=== PATIENT | female | born 1980 | race Caucasian/White ===

== ENCOUNTER 2018-12-23 17:10 | Emergency (ER) | payer MEDICAID ==
[2018-12-23] MEDS ORDERED: NORMAL SALINE 1000 ML 1,000 ML IV ONE (17:23)
--- NOTE | 2018-12-23 17:23 | ER Document Report ---
ED Medical Screen (RME) - General Chief Complaint: Flank Pain Stated Complaint: FLANK PAIN Time Seen by Provider: 12/23/18 17:18 Mode of Arrival: Ambulatory Information source: Patient Notes: Patient presents stating that she may be a month . Patient complains of nausea and right flank pain for the past 3 days. Patient reports dark urine. Patient does have a history of kidney stones. Patient denies any vaginal bleeding or discharge. hx: Polycystic kidney, Norma-Nunez, Lyme disease, fibromyalgia, lupus, RA, diabetes, kidney stones I have greeted and performed a rapid initial assessment of this patient. A comprehensive ED assessment and evaluation of the patient, analysis of test results and completion of the medical decision making process will be conducted by additional ED providers. TRAVEL OUTSIDE OF THE [place] IN LAST 30 DAYS: No - Related Data Allergies/Adverse Reactions: No Known Allergies Allergy (Verified 12/23/18 17:11) Physical Exam - Vital signs Vitals: Temp Pulse Resp BP Pulse Ox 98.4 F 116 H 18 148/84 H 100 12/23/18 17:14 12/23/18 17:14 12/23/18 17:14 12/23/18 17:14 12/23/18 17:14 - Back Back: CVA tenderness - Right Course - Vital Signs Vital signs: Temp Pulse Resp BP Pulse Ox 98.4 F 116 H 18 148/84 H 100 12/23/18 17:14 12/23/18 17:14 12/23/18 17:14 12/23/18 17:14 12/23/18 17:14
[2018-12-23 18:33] LABS: ABSOLUTE EOSINOPHILS # (AUTO) 0.2 10^3/uL (0.0-0.6); ABSOLUTE LYMPHOCYTES (AUTO) 1.1 10^3/uL (0.5-4.7); ABSOLUTE MONOCYTES (AUTO) 0.5 10^3/uL (0.1-1.4); BASOPHILS % (AUTO) 0.7 % (0-2); EOSINOPHILS % (AUTO) 2.5 % (0-6); HEMATOCRIT 38.2 % (36.0-47.0); HEMOGLOBIN 13.5 g/dL (12.0-15.5); LYMPHOCYTES % (AUTO) 16.4 % (13-45); MEAN CORPUSCULAR HEMOGLOBIN 32.2 pg (27.0-33.4); MEAN CORPUSCULAR HGB CONC 35.4 g/dL (32.0-36.0); MEAN CORPUSCULAR VOLUME 91 fl (80-97); MONOCYTES % (AUTO) 7.1 % (3-13); PLATELET COUNT 226 10^3/uL (150-450); RED CELL DISTRIBUTION WIDTH 12.2 % (11.5-14.0); SEGMENTED NEUTROPHILS % (AUTO) 73.3 % (42-78); TOTAL CELLS COUNTED % (AUTO) 100 %; WHITE BLOOD COUNT 6.9 10^3/uL (4.0-10.5)
[2018-12-23 18:38] LABS: APPEARANCE,URINE SLIGHTLY-CLOUDY; BILIRUBIN,URINE NEGATIVE (NEGATIVE); COLOR,URINE YELLOW; GLUCOSE, URINE >=500 mg/dL (NEGATIVE); KETONES,URINE TRACE mg/dL (NEGATIVE); LEUKOCYTE ESTERASE,URINE TRACE (NEGATIVE); NITRITE,URINE NEGATIVE (NEGATIVE); PROTEIN,URINE NEGATIVE (NEGATIVE); URINE SPECIFIC GRAVITY 1.025; UROBILINOGEN,URINE NEGATIVE mg/dL (<2.0)
[2018-12-23 18:49] LABS: ALKALINE PHOSPHATASE 113 U/L (38-126); ANION GAP 11 (5-19); ASPARTATE AMINO TRANSFERASE 22 U/L (14-36); BILIRUBIN,DIRECT 0.2 mg/dL (0.0-0.4); BILIRUBIN,TOTAL 0.7 mg/dL (0.2-1.3); BLOOD UREA NITROGEN 13 mg/dL (7-20); CALCIUM 9.2 mg/dL (8.4-10.2); CARBON DIOXIDE 24 mmol/L (22-30); CHLORIDE 96 mmol/L (98-107); GLUCOSE 311 mg/dL (75-110); POTASSIUM 4.1 mmol/L (3.6-5.0); TOTAL PROTEIN 6.7 g/dL (6.3-8.2)
--- NOTE | 2018-12-23 20:09 | ER Document Report ---
ED General - General Chief Complaint: Flank Pain Stated Complaint: FLANK PAIN Time Seen by Provider: 12/23/18 17:18 Mode of Arrival: Ambulatory TRAVEL OUTSIDE OF THE [place] IN LAST 30 DAYS: No - HPI Notes: Patient is a 38-year-old female G4, P1 with 2 previous abortions approximately 4 to 6 weeks and with a history of Polycystic kidney, Norma-Nunez, Lyme disease, fibromyalgia, lupus, RA, diabetes, kidney stones with multiple lithotripsies who presents planing of right flank pain that does not radiate. Patient's describes it more as a burning pain that began a few days ago. She has had some increased urinary frequency. Patient has noticed darker colored urine without hematuria. She has not had any vaginal bleeding, odor, or discharge. She is able to eat and drink, but does have a decreased p.o. intake with intermittent nausea. Denies any headache, fever, neck pain, URI, sore throat, chest pain, palpitations, syncope, cough, shortness of breath, wheeze, dyspnea, vomiting/diarrhea, loss of control of bowel or bladder, numbness/tingling, saddle anesthesia, muscle paralysis/weakness, or rash. - Related Data Allergies/Adverse Reactions: No Known Allergies Allergy (Verified 12/23/18 17:11) Past Medical History - General Information source: Patient - Social History Smoking Status: Unknown if Ever Smoked Family History: Reviewed & Not Pertinent Patient has suicidal ideation: No Patient has homicidal ideation: No Review of Systems - Review of Systems -: Yes All other systems reviewed and negative Physical Exam - Vital signs Vitals: Temp Pulse Resp BP Pulse Ox 98.4 F 116 H 18 148/84 H 100 12/23/18 17:14 12/23/18 17:14 12/23/18 17:14 12/23/18 17:14 12/23/18 17:14 - Notes Notes: PHYSICAL EXAMINATION: GENERAL: Well-appearing, well-nourished and in no acute distress. Vitals: HR 90 during exam. HEAD: Atraumatic, normocephalic. EYES: Pupils equal round and reactive to light, extraocular movements intact, sclera anicteric, conjunctiva are normal. ENT: Nares patent and without discharge. oropharynx clear without exudates. No tonsilar hypertrophy or erythema. Moist mucous membranes. NECK: Normal range of motion, supple without lymphadenopathy LUNGS: Breath sounds clear to auscultation bilaterally and equal. No wheezes rales or rhonchi. HEART: Regular rate and rhythm without murmurs, rubs, gallops. ABDOMEN: Soft, nontender, nondistended abdomen. No guarding, no rebound. No masses appreciated. Normal bowel sounds present. Very mild Rt CVA tenderness. Musculoskeletal: FROM to passive/active. Strength 5+/5. Extremities: No cyanosis, clubbing, or edema b/l. Peripheral pulses 2+. Capillary refill less than 3 seconds. NEUROLOGICAL: Normal speech, normal gait. PSYCH: Normal mood, normal affect. SKIN: Warm, Dry, normal turgor, no rashes or lesions noted. Course - Re-evaluation Re-evalutation: 12/23/18 20:12 Patient is an afebrile, well-hydrated, 38-year-old female who presents to the ED with suspected UTI and intrauterine . Vitals are acceptable without any significant tachycardia, tachypnea, or hypoxia. PE is otherwise unremarkable. CBC unremarkable for acute pathology. CMP shows elevated glucose which patient states is good for her as she is usually around 400-500. HCG at 5000+. TVUS shows evidence of the gest sac w/o pole measuring approx 5wk 5 days. See UA/UC pending. Patient is nontoxic-appearing is tolerating p.o. without any difficulties. Renal US unremarkable. No other labs or imaging warranted at this time based on H&P. Low suspicion/risk for urosepsis, acute appendicitis, bowel obstruction, acute cholecystitis, acute cholangitis, perforated diverticulitis, incarcerated hernia, pancreatitis, perforated ulcer, peritonitis, sepsis, pelvic inflammatory disease, ectopic , tubo- ovarian abscess, ovarian torsion, or other systemic emergent condition at this time. Patient is aware that her condition can change from initial presentation and she needs to monitor symptoms closely and seek medical attention if any acute changes. Rx for keflex. Continued monitoring of HCG and possible US with PCM/OBGYN. Conservative measures otherwise for symptoms. Recheck with your PCM/OBGYN in 3-5 days. Return to the ED with any worsening/concerning symptoms otherwise as reviewed in discharge. Patient is in agreement. - Vital Signs Vital signs: Temp Pulse Resp BP Pulse Ox 98.4 F 116 H 18 148/84 H 100 12/23/18 17:14 12/23/18 17:14 12/23/18 17:14 12/23/18 17:14 12/23/18 17:14 - Laboratory Result Diagrams: 12/23/18 18:09 12/23/18 18:09 Laboratory results interpreted by me: 12/23/18 12/23/18 18:09 18:09 Sodium 131.4 L Chloride 96 L Glucose 311 H Lipase 339.4 H Beta HCG, Quant 5212.70 H Urine Glucose (UA) >=500 H Urine Ketones TRACE H Ur Leukocyte Esterase TRACE H Discharge - Discharge Clinical Impression: Acute UTI (urinary tract infection), Intrauterine Condition: Stable Disposition: HOME, SELF-CARE Instructions: Urinary Tract Infection ([facility]), Cephalexin ([facility]) Additional Instructions: Push fluids (i.e. water) Proper hygenic technique Keep the skin clean Tylenol as needed Take medications as directed F/u with your PCM/OBGYN in 3-5 days for a recheck Monitor your glucose closely as it is elevated over 300 today Return to the ED with any worsening symptoms and/or development of fever, headache, chest pain, palpitations, syncope, shortness of breath, trouble breathing, abdominal pain, n/v/d, blood in stool/urine, loss of control of bowel/bladder, urinary retention, or other worsening symptoms that are concerning to you. Prescriptions: Cephalexin Monohydrate [Keflex 500 mg Capsule] 500 mg PO TID #21 capsule Forms: Elevated Blood Pressure Referrals: [facility] [Provider Group] - Follow up as needed
--- NOTE | 2018-12-23 20:11 | RADIOLOGY REPORT (SQ) ---
US RETROPERITONEUM EXAM DATE: 12/23/2018 5:22 PM CDT HISTORY: Right flank pain. COMPARISON: None. TECHNIQUE: Grayscale and color Doppler ultrasound images of the kidneys were obtained. FINDINGS: The right kidney measures 12.4 cm in length, which is normal size. The cortex has normal thickness and echogenicity. There is no right-sided kidney stone, mass or hydronephrosis. The left kidney measures 11.7 cm in length, which is normal size. The cortex has normal thickness and echogenicity. There is no left-sided kidney stone, mass or hydronephrosis. Bilateral ureteral jets are seen. IMPRESSION: Unremarkable renal ultrasound.
--- NOTE | 2018-12-23 20:11 | RADIOLOGY REPORT (SQ) ---
EXAM DESCRIPTION: US TRANSVAGINAL COMPLETED DATE/TME: 12/23/2018 17:22 CLINICAL HISTORY: 38 years, Female, r flank pain COMPARISON: None. TECHNIQUE: 2-D axial grayscale images of the pelvis were performed. Doppler was utilized. LIMITATIONS: None. FINDINGS: Uterus measures 11.1 x 6.6 x 9.0 cm in size. Cervix is closed, measuring 3.1 cm in length. Nabothian cysts are evident. Right ovary measures 2.8 x 2.0 x 1.7 cm in size. It demonstrates normal echogenicity as well as normal low resistance arterial waveforms/venous flow. Left ovary measures 2.8 x 2.0 x 2.5 cm in size. It contains a small hypoechoic lesion measuring 1.2 x 0.7 x 1.1 cm in size, likely a functional cyst. Otherwise, the left ovary demonstrates normal low resistance arterial waveforms as well as venous flow. A single intrauterine gestational sac is identified with measurements as follows: Mean sac diameter is 0.86 cm Yolk sac is identified. No pole is identified however. Estimated gestational age is 5 weeks and 5 days. IMPRESSION: Single intrauterine gestational sac as above described. No pole currently identified. Continued beta-hCG surveillance as well as follow-up pelvic ultrasound are recommended to document the development of a viable intrauterine . copyright 2010 [employer]- All Rights Reserved
[2018-12-23 20:43] VITALS: BP 137/81
== END 2018-12-23 20:43 | disposition home or self-care (01) ==
LOC: ER 17:10
DX: O23.41 Unspecified infection of urinary tract in pregnancy, first trimester (principal); O26.891 Other specified pregnancy related conditions, first trimester; R10.9 Unspecified abdominal pain; R35.0 Frequency of micturition; R63.0 Anorexia; R11.0 Nausea; Z3A.01 Less than 8 weeks gestation of pregnancy
CPT/HCPCS: 99284; 96360; 86900; 86901; 36415; 87086; 84702; 83690; 85025; 87088; 80053; 81001; 87186; 76817; 76770; J7030

== ENCOUNTER → 2019-01-12 | Outpatient (CLI) | payer SELFPAY ==
--- NOTE | 2019-01-12 14:34 | RADIOLOGY REPORT (SQ) ---
EXAM DESCRIPTION: U/S [id number] TRNABD 1GES W/ODOP COMPLETED DATE/TIME: 01/12/2019 2:27 pm REASON FOR STUDY: ENCTR FOR SUPERVISION OF OTHER NORMAL , 1ST TRIMESTER (Z34.81) Z34.81 EN COUNTER FOR SUPRVSN OF NORMAL , FIRST TRIM COMPARISON: 12/23/2018 TECHNIQUE: Transabdominal static and realtime grayscale images acquired of the pelvis. Additional se lected spectral and color Doppler images recorded. All images stored on PACs. bHCG: Not available. CLINICAL DATES: 9 weeks 3 days. LIMITATIONS: None. FINDINGS: FETUS: Single Living intrauterine . ULTRASOUND EGA: 9 weeks 1 day. ULTRASOUND JOCELYNE: 08/16/2019 EFW: Not applicable less than 20 weeks. CRL: 2.4 cm. FHR: 169 beats per minute. SURVEY: Too early to assess. AMNIOTIC FLUID: Adequate amount. PLACENTA: Not yet developed due to early gestation. SUBCHORIONIC BLEED: No. SIZE OF BLEED: Not applicable. UTERUS: No masses. No anomalies. CERVICAL LENGTH: 3.7 cm. Closed. RIGHT ADNEXA: Normal ovary with normal vascular flow. No adnexal free fluid. No adnexal masses. LEFT ADNEXA: Normal ovary with normal vascular flow. No adnexal free fluid. No adnexal masses. FREE FLUID: None. OTHER: No other significant finding. IMPRESSION: LIVING INTRAUTERINE . EGA 9 WEEKS 1 DAY. Trimester of : First trimester - 0 to 13 weeks. TECHNICAL DOCUMENTATION: JOB ID: [id number] [employer]- All Rights Reserved Reading location - IP/workstation name: [email or web address]
== END ==
LOC: RAD 13:37
PROVIDERS: ATTEND Nurse Practitioner Family
DX: Z34.81 Encounter for supervision of other normal pregnancy, first trimester (principal)
CPT/HCPCS: 76801

== ENCOUNTER 2019-02-22 19:16 | Emergency (ER) | payer MEDICAID ==
--- NOTE | 2019-02-22 19:58 | ER Document Report ---
ED Medical Screen (RME) - General Chief Complaint: Headache Stated Complaint: HEAD PAIN/DIZZY/STOMACH PAIN Time Seen by Provider: 02/22/19 19:54 Primary Care Provider: NILESH SEPULVEDA ARNP [Primary Care Provider] - Follow up as needed Mode of Arrival: Ambulatory Information source: Patient Notes: 38-year-old female presented to ED for complaint of headache dizziness loss of balance and lower abdominal pain. She is 15 weeks . She states she is type I diabetic and is not on any insulin at all at this time. She states she just moved down here from [place] and no one is giving her any ranges. She states she has been in [place] since December but she just got the Medicaid 3 days ago. She states she was at the doctor's office yesterday and h er sugar was 269. She states the doctor wrote her for the insulin but not the syringes. I have greeted and performed a rapid initial assessment of this patient. A comprehensive ED assessment and evaluation of the patient, analysis of test results and completion of medical decision making process will be conducted by an additional ED providers. TRAVEL OUTSIDE OF THE [place] IN LAST 30 DAYS: No - Related Data Allergies/Adverse Reactions: No Known Allergies Allergy (Verified 02/22/19 19:53) Past Medical History Endocrine Medical History: Reports: Hx Diabetes Mellitus Type 1 Musculoskeltal Medical History: Reports Hx Arthritis - ra Past Surgical History: Reports: Hx Cholecystectomy, Hx Kidney (Renal Surgery), Hx Orthopedic Surgery - right foot Physical Exam - Vital signs Vitals: Temp Pulse Resp BP Pulse Ox 98.2 F 97 16 137/82 H 100 02/22/19 19:46 02/22/19 19:46 02/22/19 19:46 02/22/19 19:46 02/22/19 19:46 Course - Vital Signs Vital signs: Temp Pulse Resp BP Pulse Ox 98.2 F 97 16 137/82 H 100 02/22/19 19:46 02/22/19 19:46 02/22/19 19:46 02/22/19 19:46 02/22/19 19:46 Doctor's Discharge - Discharge Referrals: NILESH SEPULVEDA ARNP [Primary Care Provider] - Follow up as needed
[2019-02-22 20:41] LABS: ABSOLUTE BASOPHILS # (AUTO) 0.1 10^3/uL (0.0-0.2); ABSOLUTE EOSINOPHILS # (AUTO) 0.5 10^3/uL (0.0-0.6); ABSOLUTE LYMPHOCYTES (AUTO) 2.4 10^3/uL (0.5-4.7); ABSOLUTE MONOCYTES (AUTO) 0.6 10^3/uL (0.1-1.4); ABSOLUTE NEUT (AUTO) 5.4 10^3/uL (1.7-8.2); BASOPHILS % (AUTO) 1.3 % (0-2); EOSINOPHILS % (AUTO) 5.4 % (0-6); HEMATOCRIT 37.5 % (36.0-47.0); HEMOGLOBIN 13.4 g/dL (12.0-15.5); LYMPHOCYTES % (AUTO) 26.4 % (13-45); MEAN CORPUSCULAR HEMOGLOBIN 32.9 pg (27.0-33.4); MEAN CORPUSCULAR HGB CONC 35.7 g/dL (32.0-36.0); MEAN CORPUSCULAR VOLUME 92 fl (80-97); MONOCYTES % (AUTO) 6.3 % (3-13); PLATELET COUNT 246 10^3/uL (150-450); RED BLOOD COUNT 4.07 10^6/uL (3.72-5.28); RED CELL DISTRIBUTION WIDTH 12.9 % (11.5-14.0); SEGMENTED NEUTROPHILS % (AUTO) 60.6 % (42-78); TOTAL CELLS COUNTED % (AUTO) 100 %
[2019-02-22 20:56] LABS: ALBUMIN 3.9 g/dL (3.5-5.0); ALKALINE PHOSPHATASE 90 U/L (38-126); ANION GAP 11 (5-19); ASPARTATE AMINO TRANSFERASE 19 U/L (14-36); BILIRUBIN,DIRECT 0.1 mg/dL (0.0-0.4); BILIRUBIN,TOTAL 0.4 mg/dL (0.2-1.3); BLOOD UREA NITROGEN 7 mg/dL (7-20); CALCIUM 9.8 mg/dL (8.4-10.2); CARBON DIOXIDE 21 mmol/L (22-30); CHLORIDE 103 mmol/L (98-107); CREATINE KINASE 26 U/L (30-135); GLUCOSE 270 mg/dL (75-110); POTASSIUM 3.9 mmol/L (3.6-5.0); TOTAL PROTEIN 7.1 g/dL (6.3-8.2)
[2019-02-22 21:08] LABS: CREATINE KINASE MB 0.92 ng/mL (<4.55); TROPONIN I < 0.012 ng/mL
--- NOTE | 2019-02-22 23:16 | EKG REPORT ---
SEVERITY:- NORMAL ECG - SINUS RHYTHM : Confirmed by: Michael Lama MD 22-Feb-2019 23:15:56
[2019-02-22 23:22] LABS: VENOUS BLOOD BASE EXCESS -0.3 mmol/L; VENOUS BLOOD HCO3 24.6 mmol/L (20-32); VENOUS BLOOD PCO2 41.2 mmHg (35-63); VENOUS BLOOD PH 7.39 (7.30-7.42)
[2019-02-22 23:33] LABS: APPEARANCE,URINE CLEAR; BILIRUBIN,URINE NEGATIVE (NEGATIVE); COLOR,URINE STRAW; GLUCOSE, URINE >=500 mg/dL (NEGATIVE); KETONES,URINE TRACE mg/dL (NEGATIVE); PROTEIN,URINE NEGATIVE (NEGATIVE); URINE SPECIFIC GRAVITY 1.018; UROBILINOGEN,URINE NEGATIVE mg/dL (<2.0)
[2019-02-23] MEDS ORDERED: NORMAL SALINE 1000 ML 1,000 ML IV ONE (01:36)
[2019-02-23 03:05] VITALS: BP 161/89
[2019-02-23] MEDS ORDERED: NITROFURANTOIN MONOHYD/M-CRYST 100 MG CAPSULE PO ONE (03:08)
== END 2019-02-23 03:21 | disposition home or self-care (01) ==
LOC: ER 19:16
DX: O26.892 Other specified pregnancy related conditions, second trimester (principal); R51 Headache; R42 Dizziness and giddiness; R10.30 Lower abdominal pain, unspecified; O24.012 Pre-existing type 1 diabetes mellitus, in pregnancy, second trimester; E10.9 Type 1 diabetes mellitus without complications; Z79.4 Long term (current) use of insulin; Z3A.15 15 weeks gestation of pregnancy
CPT/HCPCS: 93005; 99284; 96360; 36415; 87086; 82553; 82962; 82550; 85025; 87088; 80053; 81001; 84484; 87186; 82803; 93010; J7030; J3490; J8499

== ENCOUNTER → 2019-05-14 | Outpatient (CLI) | payer MEDICAID ==
[2019-05-14 12:03] LABS: ABSOLUTE BASOPHILS # (AUTO) 0.1 10^3/uL (0.0-0.2); ABSOLUTE EOSINOPHILS # (AUTO) 0.4 10^3/uL (0.0-0.6); ABSOLUTE LYMPHOCYTES (AUTO) 3.7 10^3/uL (0.5-4.7); ABSOLUTE MONOCYTES (AUTO) 0.9 10^3/uL (0.1-1.4); ABSOLUTE NEUT (AUTO) 9.4 10^3/uL (1.7-8.2); BASOPHILS % (AUTO) 0.6 % (0-2); EOSINOPHILS % (AUTO) 2.9 % (0-6); HEMATOCRIT 40.5 % (36.0-47.0); HEMOGLOBIN 14.2 g/dL (12.0-15.5); LYMPHOCYTES % (AUTO) 25.4 % (13-45); MEAN CORPUSCULAR HEMOGLOBIN 31.9 pg (27.0-33.4); MEAN CORPUSCULAR VOLUME 91 fl (80-97); MONOCYTES % (AUTO) 6.2 % (3-13); PLATELET COUNT 246 10^3/uL (150-450); RED BLOOD COUNT 4.45 10^6/uL (3.72-5.28); RED CELL DISTRIBUTION WIDTH 12.6 % (11.5-14.0); SEGMENTED NEUTROPHILS % (AUTO) 64.9 % (42-78); TOTAL CELLS COUNTED % (AUTO) 100 %; WHITE BLOOD COUNT 14.5 10^3/uL (4.0-10.5)
[2019-05-14 12:29] LABS: UR PRO/CREAT RATIO RESULT 0.1 mg/mg (0.0-0.2); URINE CREATININE 135.2 mg/dL (16-327); URINE PROTEIN 10.4 mg/dL (<12)
[2019-05-14 12:31] LABS: ASPARTATE AMINO TRANSFERASE 21 U/L (14-36)
== END ==
LOC: OD 11:28
PROVIDERS: ATTEND Registered Nurse Women's Health Care, Ambulatory
DX: O16.9 Unspecified maternal hypertension, unspecified trimester (principal)
CPT/HCPCS: 36415; 82565; 82570; 83615; 84156; 84450; 84550; 85025

== ENCOUNTER 2019-10-28 22:15 | Emergency (ER) | payer MEDICAID ==
[2019-10-28] MEDS ORDERED: NORMAL SALINE 1000 ML 1,000 ML IV ONE (23:26)
--- NOTE | 2019-10-28 23:28 | ER Document Report ---
ED Medical Screen (RME) - General Chief Complaint: Abdominal Pain Stated Complaint: LEFT SIDED ABDOMINAL PAIN Time Seen by Provider: 10/28/19 23:25 Primary Care Provider: MAC ORDOÑEZ NP [Primary Care Provider] - Follow up as needed Notes: HPI: 39-year-old female insulin-dependent diabetic with fibromyalgia lupus and rheumatoid arthritis history who is on no medications including her insulin for the last 6 months presenting for left lower quadrant left pelvic pain over the last 3 days. Pain is been intermittent in nature but she will have occasional sharp stabbing discomfort. Does have kidney stone history as well. Does have ovarian cyst history as well. Patient states she did deliver a baby at [facility] by and had her tubes tied in May 2019. No fever. PHYSICAL EXAMINATION: Moderately uncomfortable. No significant reproducible pain in the left flank left lower quadrant region on palpation, moderately hypertensive and tachycardic discussed with KATIUSKA GARCIA regarding placement I have greeted and performed a rapid initial assessment of this patient. A comprehensive ED assessment and evaluation of the patient, analysis of test results and completion of medical decision making process will be conducted by an additional ED providers. TRAVEL OUTSIDE OF THE [place] IN LAST 30 DAYS: No - Related Data Allergies/Adverse Reactions: No Known Allergies Allergy (Verified 02/22/19 19:53) Past Medical History Endocrine Medical History: Reports: Hx Diabetes Mellitus Type 1 Musculoskeltal Medical History: Reports Hx Arthritis - ra Past Surgical History: Reports: Hx Cholecystectomy, Hx Kidney (Renal Surgery), Hx Orthopedic Surgery - right foot Physical Exam - Vital signs Vitals: Temp Pulse Resp BP Pulse Ox 98.5 F 117 H 16 164/89 H 100 10/28/19 22:20 10/28/19 22:20 10/28/19 22:20 10/28/19 22:20 10/28/19 22:20 Course - Vital Signs Vital signs: Temp Pulse Resp BP Pulse Ox 98.5 F 117 H 16 164/89 H 100 10/28/19 22:20 10/28/19 22:20 10/28/19 22:20 10/28/19 22:20 10/28/19 22:20 Doctor's Discharge - Discharge Referrals: MAC ORDOÑEZ NP [Primary Care Provider] - Follow up as needed
[2019-10-29 00:06] LABS: ABSOLUTE BASOPHILS # (AUTO) 0.1 10^3/uL (0.0-0.2); ABSOLUTE EOSINOPHILS # (AUTO) 0.4 10^3/uL (0.0-0.6); ABSOLUTE LYMPHOCYTES (AUTO) 2.3 10^3/uL (0.5-4.7); ABSOLUTE MONOCYTES (AUTO) 0.5 10^3/uL (0.1-1.4); ABSOLUTE NEUT (AUTO) 4.4 10^3/uL (1.7-8.2); BASOPHILS % (AUTO) 0.7 % (0-2); EOSINOPHILS % (AUTO) 4.8 % (0-6); HEMATOCRIT 35.1 % (36.0-47.0); HEMOGLOBIN 11.4 g/dL (12.0-15.5); LYMPHOCYTES % (AUTO) 30.3 % (13-45); MEAN CORPUSCULAR HEMOGLOBIN 26.9 pg (27.0-33.4); MEAN CORPUSCULAR HGB CONC 32.6 g/dL (32.0-36.0); MEAN CORPUSCULAR VOLUME 83 fl (80-97); MONOCYTES % (AUTO) 6.9 % (3-13); PLATELET COUNT 286 10^3/uL (150-450); RED BLOOD COUNT 4.26 10^6/uL (3.72-5.28); RED CELL DISTRIBUTION WIDTH 15.4 % (11.5-14.0); SEGMENTED NEUTROPHILS % (AUTO) 57.3 % (42-78); TOTAL CELLS COUNTED % (AUTO) 100 %; WHITE BLOOD COUNT 7.6 10^3/uL (4.0-10.5)
[2019-10-29 00:11] LABS: VENOUS BLOOD BASE EXCESS -1.7 mmol/L; VENOUS BLOOD HCO3 22.1 mmol/L (20-32); VENOUS BLOOD PCO2 33.8 mmHg (35-63); VENOUS BLOOD PH 7.43 (7.30-7.42)
[2019-10-29 00:13] LABS: APPEARANCE,URINE CLEAR; BILIRUBIN,URINE NEGATIVE (NEGATIVE); COLOR,URINE STRAW; GLUCOSE, URINE >=500 mg/dL (NEGATIVE); KETONES,URINE NEGATIVE (NEGATIVE); LEUKOCYTE ESTERASE,URINE NEGATIVE (NEGATIVE); NITRITE,URINE NEGATIVE (NEGATIVE); PROTEIN,URINE NEGATIVE (NEGATIVE); URINE SPECIFIC GRAVITY 1.028; UROBILINOGEN,URINE NEGATIVE mg/dL (<2.0)
[2019-10-29 00:29] LABS: ALBUMIN 4.2 g/dL (3.5-5.0); ALKALINE PHOSPHATASE 113 U/L (38-126); ANION GAP 10 (5-19); ASPARTATE AMINO TRANSFERASE 19 U/L (14-36); BILIRUBIN,TOTAL 0.4 mg/dL (0.2-1.3); BLOOD UREA NITROGEN 9 mg/dL (7-20); CALCIUM 8.8 mg/dL (8.4-10.2); CARBON DIOXIDE 22 mmol/L (22-30); CHLORIDE 100 mmol/L (98-107); GLUCOSE 329 mg/dL (75-110); POTASSIUM 4.1 mmol/L (3.6-5.0); TOTAL PROTEIN 6.6 g/dL (6.3-8.2)
[2019-10-29] MEDS ORDERED: MORPHINE SULFATE 10 MG/ML INJ IV ONE (02:00)
[2019-10-29] MEDS ORDERED: ONDANSETRON HCL INJ/PF 4 MG/2 ML SDV IV ONE (02:00)
--- NOTE | 2019-10-29 02:02 | ER Document Report ---
ED GI/ - General Chief Complaint: Abdominal Pain Stated Complaint: LEFT SIDED ABDOMINAL PAIN Time Seen by Provider: 10/28/19 23:25 Primary Care [facility]: [facility] [[facility]] - Follow up as needed Notes: Patient is a 39-year-old female that comes to the emergency department for chief complaint of sharp pain in the left lower abdomen that radiates around to her back. She states symptoms actually started milder 3 days ago but have become worse with sharp stabbing pains. She states tonight she could not get comfortable and the pain became severe so she came in for evaluation. She has a history of both kidney stones and ovarian cysts. She denies vaginal bleeding or discharge, dysuria, nausea, vomiting, fever. She has had a tubal ligation in May, cholecystectomy, nephrostomy tube for infected stone in the past, and has a history of insulin-dependent diabetes, lupus, rheumatoid arthritis, fibromyalgia. She denies chronic pain management. She has had some trouble moving her bowels over the past day but does not report any bloody or abnormal appearing bowel movements. She is able to eat without difficulty. TRAVEL OUTSIDE OF THE [place] IN LAST 30 DAYS: No - Related Data Allergies/Adverse Reactions: No Known Allergies Allergy (Verified 02/22/19 19:53) Past Medical History - General Information source: Patient - Social History Smoking Status: Never Smoker Frequency of alcohol use: None Drug Abuse: None Lives with: Family Family History: Reviewed & Not Pertinent Endocrine Medical History: Reports: Hx Diabetes Mellitus Type 2 Renal/ Medical History: Reports: Hx Kidney Stones, Hx Ovarian Cysts Musculoskeletal Medical History: Reports Hx Arthritis - ra Past Surgical History: Reports: Hx Cholecystectomy, Hx Kidney (Renal Surgery), Hx Orthopedic Surgery - right foot - Immunizations Hx Diphtheria, Pertussis, Tetanus Vaccination: Yes Review of Systems - Review of Systems Constitutional: No symptoms reported EENT: No symptoms reported Cardiovascular: No symptoms reported Respiratory: No symptoms reported Gastrointestinal: See HPI Genitourinary: See HPI Female Genitourinary: See HPI Musculoskeletal: No symptoms reported Skin: No symptoms reported Hematologic/Lymphatic: No symptoms reported Neurological/Psychological: No symptoms reported Physical Exam - Vital signs Vitals: Temp Pulse Resp BP Pulse Ox 98.5 F 117 H 16 164/89 H 100 10/28/19 22:20 10/28/19 22:20 10/28/19 22:20 10/28/19 22:20 10/28/19 22:20 - Notes Notes: GENERAL: Alert, interacts well. No acute distress. HEAD: Normocephalic, atraumatic. EYES: Pupils equal, round, and reactive to light. Extraocular movements intact. ENT: Oral mucosa moist, tongue midline. Oropharynx unremarkable. Airway patent. Nares patent, sinuses non-tender, ear canals unremarkable, TM's intact. NECK: Full range of motion. Supple. Trachea midline. No lymphadenopathy. LUNGS: Clear to auscultation bilaterally, no wheezes, rales, or rhonchi. No respiratory distress. Non-tender chest wall. HEART: Borderline tachycardic, normal rhythm, no murmur ABDOMEN: There is some tenderness in the mid to lower abdomen especially on the left side. No guarding. No noted pelvic tenderness. No rigidity or rebound tenderness. Bowel sounds are present throughout. GENITOURINARY: Deferred EXTREMITIES: Moves all 4 extremities spontaneously. No edema, normal radial and dorsalis pedis pulses bilaterally. No cyanosis. BACK: No CVA tenderness. No cervical, thoracic, lumbar midline tenderness. No saddle anesthesia, normal distal neurovascular exam. Moves all extremities in full range of motion. NEUROLOGICAL: Alert and oriented x3. Normal speech. Cranial nerves II through XII grossly intact. Strength 5/5 in all extremities. PSYCH: Normal affect, normal mood. SKIN: Warm, dry, normal turgor. No rashes or lesions noted. Course - Re-evaluation Re-evalutation: CBC, chemistry, urinalysis unremarkable except for hyperglycemia without acidosis. test negative. CT from triage reviewed and shows nephrolithiasis but no ureterolithiasis or acute concerning findings. CAT scan does show some constipation and uterine fibroids as well. I discussed with patient. She is comfortable after medications. I did discuss possibly performing pelvic ultrasound but based on the location of her pain, lack of cyst on CAT scan, lack of nausea or vomiting, clinical appearance, I do have low suspicion of ovarian cyst and torsion. After discussion this was deferred. Patient will instead be treated for a bowel cleanse, referred to [facility] COORD[facility] for uterine fibroids, and she will return if she worsens. This was discussed in detail. Patient states appreciation and agreement with plan. Stable and well-appearing at time of discharge. - Vital Signs Vital signs: Temp Pulse Resp BP Pulse Ox 98.0 F 102 H 18 150/76 H 99 10/29/19 03:35 10/29/19 03:35 10/29/19 03:35 10/29/19 03:35 10/29/19 03:35 - Laboratory Result Diagrams: 10/28/19 23:46 10/28/19 23:46 Laboratory results interpreted by me: 10/28/19 10/28/19 10/28/19 23:46 23:46 23:46 Hgb 11.4 L Hct 35.1 L MCH 26.9 L RDW 15.4 H VBG pH 7.43 H VBG pCO2 33.8 L Sodium 131.5 L Glucose 329 H Urine Glucose (UA) 10/28/19 23:46 Hgb Hct MCH RDW VBG pH VBG pCO2 Sodium Glucose Urine Glucose (UA) >=500 H Discharge - Discharge Clinical Impression: Abdominal pain Qualifiers: Abdominal location: lower abdomen, unspecified Qualified Code(s): R10.30 - Lower abdominal pain, unspecified Condition: Stable Disposition: HOME, SELF-CARE Additional Instructions: You have a stone in the kidney on the left side but no passing stones, cyst, or concerning findings are seen. I believe your pain is a combination of uterine fibroids and pain from your bowel. I recommend a bowel cleanse. I recommend that you drink 1/4 to 1/2 of the magnesium citrate, then if after several hours you do not have bowel movement results drink another 1/4 to half. You may need to take the colace stool softener for the next 2-4 days as well as prescribed. Take bentyl for cramping, zofran for nausea. Only take the stronger pain medication if absolutely needed, this can actually worsen your constipation. Improve your diet - increased vegetables, fruits, fiber, and fluids are very helpful to clear your bowels. Follow-up with IMPROVEMENT COORDINATOR for management of fibroids, follow-up with primary care otherwise. Return if you worsen including severe worsening pain, vomiting, fever, or any other concerning symptoms. Prescriptions: Dicyclomine HCl [Bentyl 20 mg Tablet] 20 mg PO QID PRN #20 tablet PRN Reason: Docusate Sodium [Colace 100 mg Capsule] 100 mg PO ASDIR PRN #30 capsule PRN Reason: Ondansetron [Zofran Odt 4 mg Tablet] 1 - 2 tab PO Q4H PRN #15 tab.rapdis PRN Reason: For Nausea/Vomiting Referrals: [facility] [Provider Group] - Follow up as needed
--- NOTE | 2019-10-29 02:43 | RADIOLOGY REPORT (SQ) ---
EXAM DESCRIPTION: CT ABDOMEN PELVIS WITHOUT IV CONTRAST COMPLETED DATE/TME: 10/28/2019 23:26 CLINICAL HISTORY: 39 years Female, left pelvic pain Comparison: None. Technique: No contrast. Coronal and sagittal reformat. This exam was performed according to our departmental dose-optimization program, which includes automated exposure control, adjustment of the mA and/or kV according to patient size and/or use of iterative reconstruction technique.[facility]: Dose Right [facility]: CareDose [facility]: Dose Right [facility]: Teradose 4D [facility]: [employer] LIMITATIONS: None Findings: Left renal stones measure up to 0.4 cm each. No hydronephrosis and no hydroureter. Cholecystectomy. Tubal ligation clips. Fibroid uterus. 23 cm liver. Colonic diverticulosis. Splenic index of 726. Stool retention. No ascites. No pneumoperitoneum. Normal appendix. No bowel obstruction. No evidence of abdominal aortic aneurysm. No gross evidence of thecal sac/cord or nerve root compression. Unenhanced lower thorax, abdominopelvic structures, and musculoskeleton appear otherwise grossly unremarkable. Impression: 1. Moderate splenomegaly. 2. Mild hepatomegaly. 3. 0.2 cm left renal stone.
[2019-10-29] MEDS ORDERED: HYDROCODONE/ACETAMINOPHEN 5-325 MG (6 TAB/ER DISP) PO PRN (03:08)
[2019-10-29] MEDS ORDERED: MAGNESIUM CITRATE 296 ML BOTTLE PO ONE (03:09)
[2019-10-29 03:50] VITALS: BP 150/76
== END 2019-10-29 03:50 | disposition home or self-care (01) ==
LOC: ER 22:15
DX: K59.00 Constipation, unspecified (principal); D25.9 Leiomyoma of uterus, unspecified; N20.0 Calculus of kidney; R10.30 Lower abdominal pain, unspecified; R10.819 Abdominal tenderness, unspecified site; R16.2 Hepatomegaly with splenomegaly, not elsewhere classified; E11.65 Type 2 diabetes mellitus with hyperglycemia; Z98.51 Tubal ligation status; Z90.49 Acquired absence of other specified parts of digestive tract
CPT/HCPCS: 99284; 96361; 96374; 96375; 36415; 83690; 84703; 85025; 80053; 81001; 82803; 74176; J3490; J2270; J2405; J7030

== ENCOUNTER 2019-11-25 09:56 | Emergency (ER) | payer MEDICAID ==
[2019-11-25 10:04] VITALS: BP 144/100
[2019-11-25 11:05] LABS: APPEARANCE,URINE CLEAR; BILIRUBIN,URINE NEGATIVE (NEGATIVE); COLOR,URINE STRAW; GLUCOSE, URINE >=500 mg/dL (NEGATIVE); KETONES,URINE NEGATIVE (NEGATIVE); LEUKOCYTE ESTERASE,URINE TRACE (NEGATIVE); NITRITE,URINE NEGATIVE (NEGATIVE); PROTEIN,URINE NEGATIVE (NEGATIVE); URINE SPECIFIC GRAVITY 1.028; UROBILINOGEN,URINE NEGATIVE mg/dL (<2.0)
[2019-11-25] MEDS ORDERED: ONDANSETRON 4 MG TAB.RAPDIS PO ONE (11:33)
[2019-11-25] MEDS ORDERED: KETOROLAC TROMETHAMINE INJ/PF 30 MG/1 ML SDV IV ONE (11:33)
[2019-11-25] MEDS ORDERED: HYDROCODONE/ACETAMINOPHEN 5-325 MG TABLET PO ONE (11:33)
[2019-11-25 11:40] LABS: ABSOLUTE BASOPHILS # (AUTO) 0.1 10^3/uL (0.0-0.2); ABSOLUTE EOSINOPHILS # (AUTO) 0.4 10^3/uL (0.0-0.6); ABSOLUTE LYMPHOCYTES (AUTO) 2.9 10^3/uL (0.5-4.7); ABSOLUTE MONOCYTES (AUTO) 0.6 10^3/uL (0.1-1.4); ABSOLUTE NEUT (AUTO) 5.5 10^3/uL (1.7-8.2); BASOPHILS % (AUTO) 0.9 % (0-2); EOSINOPHILS % (AUTO) 4.3 % (0-6); HEMATOCRIT 41.1 % (36.0-47.0); HEMOGLOBIN 13.3 g/dL (12.0-15.5); LYMPHOCYTES % (AUTO) 30.4 % (13-45); MEAN CORPUSCULAR HEMOGLOBIN 25.7 pg (27.0-33.4); MEAN CORPUSCULAR HGB CONC 32.2 g/dL (32.0-36.0); MEAN CORPUSCULAR VOLUME 80 fl (80-97); MONOCYTES % (AUTO) 6.6 % (3-13); RED BLOOD COUNT 5.17 10^6/uL (3.72-5.28); RED CELL DISTRIBUTION WIDTH 16.2 % (11.5-14.0); SEGMENTED NEUTROPHILS % (AUTO) 57.8 % (42-78); TOTAL CELLS COUNTED % (AUTO) 100 %; WHITE BLOOD COUNT 9.5 10^3/uL (4.0-10.5)
--- NOTE | 2019-11-25 11:40 | ER Document Report ---
ED General - General Chief Complaint: Pelvic Pain Stated Complaint: PELVIC PAIN Time Seen by Provider: 11/25/19 11:04 Primary Care Provider: MAC ORDOÑEZ NP [Primary Care Provider] - Follow up as needed Notes: 39-year-old female presents emergency department complaining of sharp stabbing right lower quadrant abdominal pain for the past week that significantly worsened today when she bent over to pick something up and then stood up and she had a severe tearing pain in her right lower quadrant which is now associated with a large bulge that is present when she stands and reduces when she lays down. States it is in the same place where she had a hernia repair when she was 5 years old. Denies any difficulty with bowel movements or urination, denies any vaginal discharge, denies any fevers. Admits nausea but denies vomiting. TRAVEL OUTSIDE OF THE [place] IN LAST 30 DAYS: No - Related Data Allergies/Adverse Reactions: No Known Allergies Allergy (Verified 11/25/19 10:31) Past Medical History - General Information source: Patient - Social History Smoking Status: Never Smoker Frequency of alcohol use: None Drug Abuse: None Family History: Reviewed & Not Pertinent Endocrine Medical History: Reports: Hx Diabetes Mellitus Type 1, Hx Diabetes Mellitus Type 2 Renal/ Medical History: Reports: Hx Kidney Stones, Hx Ovarian Cysts Musculoskeletal Medical History: Reports Hx Arthritis - ra Past Surgical History: Reports: Hx Section, Hx Cholecystectomy, Hx Kidney (Renal Surgery), Hx Orthopedic Surgery - right foot, Hx Tubal Ligation - Immunizations Hx Diphtheria, Pertussis, Tetanus Vaccination: Yes Review of Systems - Review of Systems Constitutional: No symptoms reported Gastrointestinal: See HPI, Abdominal pain, Nausea, Other - Bulge Genitourinary: No symptoms reported -: Yes All other systems reviewed and negative Physical Exam - Vital signs Vitals: Temp Pulse Resp BP Pulse Ox 98.1 F 98 16 144/100 H 99 11/25/19 10:03 11/25/19 10:03 11/25/19 10:03 11/25/19 10:03 11/25/19 10:03 Interpretation: Hypertensive - Notes Notes: GENERAL: Standing in room, tearful, pacing, clutching lower aspect of the right side of the abdomen. HEAD: Normocephalic, atraumatic EYES: Pupils equal, round and reactive to light, extraocular movements intact. ENT: Oral mucosa moist, tongue midline. NECK: Full range of motion, supple, trachea midline. LUNGS: Clear to auscultation bilaterally, no wheezes, rales or rhonchi, no respiratory distress. HEART: Regular rate and rhythm, no murmurs, gallops, rubs. ABDOMEN: There is a soft bulge in the right lower quadrant just lateral to the well-healed incision, tender to palpation, only present when standing, easily reducible when she lays down, you are able to palpate a hernia defect again just lateral to the well-healed incision, it is tender to palpation. No mass when laying down. Bowel sounds present in all 4 quadrants. EXTREMITIES: Moves all 4 extremities spontaneously, no cyanosis. NEUROLOGICAL: Alert and oriented x3, normal speech. PSYCH: Tearful. SKIN: Warm, Dry, normal turgor, no rashes or lesions noted. Course - Re-evaluation Re-evalutation: 11/25/19 11:40 Examination consistent with lower abdominal hernia., No evidence of incarceration or strangulation. Patient is instructed on stool softeners, lifting techniques, limited pain medication and abdominal binder. Given information for surgery for potential outpatient repair. - Vital Signs Vital signs: Temp Pulse Resp BP Pulse Ox 98.1 F 98 16 144/100 H 99 11/25/19 10:03 11/25/19 10:03 11/25/19 10:03 11/25/19 10:03 11/25/19 10:03 - Laboratory Result Diagrams: 11/25/19 11:12 11/25/19 11:12 Laboratory results interpreted by me: 11/25/19 10:42 Urine Glucose (UA) >=500 H Urine Blood SMALL H Ur Leukocyte Esterase TRACE H Discharge - Discharge Clinical Impression: Abdominal hernia without obstruction and without gangrene Qualifiers: Hernia type: incisional Qualified Code(s): K43.2 - Incisional hernia without obstruction or gangrene; K43.91 - Incisional hernia, without obstruction or gangrene Condition: Stable Disposition: HOME, SELF-CARE Additional Instructions: Hernia You have a hernia. A hernia forms at a weak spot in the abdominal wall. Bowel slips out of the abdominal cavity into the weak spot. Hernias tend to occur in the groin (especially in males), the fold of the thigh, the naval, or at a surgical scar. Surgical repair of the defect is usually necessary. The problem tends to get worse. It's important that you follow up as recommended. For now, you should avoid straining, heavy lifting, and vigorous exercise. Please wear the abdominal binder that you were given after . If you need to take 1 of the [place] for pain please take a dose of MiraLAX as well. If you are having any firm stools or having to strain to have a bowel movement please make sure you are taking a capful of MiraLAX dissolved in a glass of water once a day. Constipation will worsen the hernia. Complications occur if the hernia becomes tightly stuck. You should come back immediately if the area becomes increasingly painful, swollen, or discolored, or if you develop abdominal pain and vomiting. Prescriptions: Hydrocodone/Acetaminophen [[place] 5-325 mg Tablet] 1 tab PO Q6HP PRN #6 tablet PRN Reason: Referrals: BERTA MARTIN MD [ACTIVE STAFF] - Follow up as needed
[2019-11-25] MEDS ORDERED: KETOROLAC TROMETHAMINE INJ/PF 30 MG/1 ML SDV IM ONE (11:41)
[2019-11-25 11:57] LABS: ANION GAP 10 (5-19); BLOOD UREA NITROGEN 11 mg/dL (7-20); CALCIUM 10.1 mg/dL (8.4-10.2); CARBON DIOXIDE 22 mmol/L (22-30); CHLORIDE 102 mmol/L (98-107); GLUCOSE 375 mg/dL (75-110); POTASSIUM 4.7 mmol/L (3.6-5.0)
[2019-11-25 12:07] LABS: PLATELET COUNT 273 10^3/uL (150-450)
== END 2019-11-25 11:50 | disposition home or self-care (01) ==
LOC: ER 09:56
DX: K43.2 Incisional hernia without obstruction or gangrene (principal); R10.31 Right lower quadrant pain; R11.0 Nausea; E11.9 Type 2 diabetes mellitus without complications; Z87.442 Personal history of urinary calculi; Z87.42 Personal history of other diseases of the female genital tract
CPT/HCPCS: 99283; 96372; 36415; 85025; 81025; 80048; 81001; S0119; J1885

== ENCOUNTER 2019-12-05 10:09 | Emergency (ER) | payer MEDICAID ==
[2019-12-05] MEDS ORDERED: NORMAL SALINE 1000 ML 1,000 ML IV ONE (10:54)
--- NOTE | 2019-12-05 10:54 | ER Document Report ---
ED Medical Screen (RME) - General Chief Complaint: Pelvic Pain Stated Complaint: REVISIT/LOW RIGHT PELVIC PAIN Time Seen by Provider: 12/05/19 10:33 Mode of Arrival: Ambulatory Information source: Patient Notes: 39-year-old female presented to ED for continued right pelvic pain. She states that she was seen on [address] gerber and was diagnosed with a hernia she went to her follow-up appointment with Dr. Bettnecourt and he told her it was not a hernia. She does have a bulge along the incisional line on the right side. I have consulted Dr. ravi has examined the patient. I did examine the patient in the presence of Sue the RN.. I have greeted and performed a rapid initial assessment of this patient. A comprehensive ED assessment and evaluation of the patient, analysis of test results and completion of medical decision making process will be conducted by an additional ED providers. TRAVEL OUTSIDE OF THE [place] IN LAST 30 DAYS: No - Related Data Allergies/Adverse Reactions: No Known Allergies Allergy (Verified 12/05/19 10:26) Past Medical History Endocrine Medical History: Reports: Hx Diabetes Mellitus Type 1, Hx Diabetes Mellitus Type 2 Renal/ Medical History: Reports: Hx Kidney Stones, Hx Ovarian Cysts Musculoskeltal Medical History: Reports Hx Arthritis - ra Past Surgical History: Reports: Hx Section, Hx Cholecystectomy, Hx Kidney (Renal Surgery), Hx Orthopedic Surgery - right foot, Hx Tubal Ligation - Immunizations Hx Diphtheria, Pertussis, Tetanus Vaccination: Yes Physical Exam - Vital signs Vitals: Temp Pulse Resp BP Pulse Ox 98.5 F 126 H 18 153/96 H 100 12/05/19 10:14 12/05/19 10:14 12/05/19 10:14 12/05/19 10:14 12/05/19 10:14 Course - Vital Signs Vital signs: Temp Pulse Resp BP Pulse Ox 98.5 F 126 H 18 153/96 H 100 12/05/19 10:14 12/05/19 10:14 12/05/19 10:14 12/05/19 10:14 12/05/19 10:14
[2019-12-05] MEDS ORDERED: MORPHINE SULFATE 10 MG/ML INJ IV ONE (10:55)
[2019-12-05] MEDS ORDERED: ONDANSETRON HCL INJ/PF 4 MG/2 ML SDV IV ONE (11:17)
[2019-12-05 11:39] LABS: ABSOLUTE BASOPHILS # (AUTO) 0.1 10^3/uL (0.0-0.2); ABSOLUTE EOSINOPHILS # (AUTO) 0.3 10^3/uL (0.0-0.6); ABSOLUTE LYMPHOCYTES (AUTO) 1.7 10^3/uL (0.5-4.7); ABSOLUTE MONOCYTES (AUTO) 0.5 10^3/uL (0.1-1.4); BASOPHILS % (AUTO) 0.9 % (0-2); EOSINOPHILS % (AUTO) 3.4 % (0-6); LYMPHOCYTES % (AUTO) 22.3 % (13-45); MEAN CORPUSCULAR HEMOGLOBIN 25.8 pg (27.0-33.4); MEAN CORPUSCULAR HGB CONC 32.6 g/dL (32.0-36.0); MEAN CORPUSCULAR VOLUME 79 fl (80-97); MONOCYTES % (AUTO) 6.5 % (3-13); PLATELET COUNT 242 10^3/uL (150-450); RED BLOOD COUNT 5.06 10^6/uL (3.72-5.28); RED CELL DISTRIBUTION WIDTH 16.2 % (11.5-14.0); SEGMENTED NEUTROPHILS % (AUTO) 66.9 % (42-78); TOTAL CELLS COUNTED % (AUTO) 100 %; WHITE BLOOD COUNT 7.5 10^3/uL (4.0-10.5)
[2019-12-05 11:49] LABS: APPEARANCE,URINE CLOUDY; BILIRUBIN,URINE NEGATIVE (NEGATIVE); COLOR,URINE YELLOW; GLUCOSE, URINE >=500 mg/dL (NEGATIVE); KETONES,URINE TRACE mg/dL (NEGATIVE); PROTEIN,URINE NEGATIVE (NEGATIVE); UROBILINOGEN,URINE NEGATIVE mg/dL (<2.0)
[2019-12-05 12:16] LABS: ALBUMIN 4.4 g/dL (3.5-5.0); ALKALINE PHOSPHATASE 134 U/L (38-126); ANION GAP 12 (5-19); ASPARTATE AMINO TRANSFERASE 29 U/L (14-36); BILIRUBIN,TOTAL 0.6 mg/dL (0.2-1.3); BLOOD UREA NITROGEN 9 mg/dL (7-20); CALCIUM 9.5 mg/dL (8.4-10.2); CARBON DIOXIDE 20 mmol/L (22-30); CHLORIDE 101 mmol/L (98-107); GLUCOSE 331 mg/dL (75-110); POTASSIUM 4.5 mmol/L (3.6-5.0); TOTAL PROTEIN 7.4 g/dL (6.3-8.2)
--- NOTE | 2019-12-05 13:41 | RADIOLOGY REPORT (SQ) ---
EXAM DESCRIPTION: CT ABD/PELVIS WITH IV ORAL IMAGES COMPLETED DATE/TIME: 12/05/2019 1:15 pm REASON FOR STUDY: rlq pain COMPARISON: CT of the abdomen and pelvis without contrast from 10/29/2019. TECHNIQUE: CT scan of the abdomen and pelvis performed using helical scanning technique with dynamic intravenous contrast injection. No oral contrast. Images reviewed with lung, soft tissue, and bone windows. Reconstructed coronal and sagittal MPR images reviewed. Delayed images for evaluation of the urinary system also acquired. All images stored on PACS. All CT scanners at this facility use dose modulation, iterative reconstruction, and/or weight based d osing when appropriate to reduce radiation dose to as low as reasonably achievable (ALARA). [facility]: Dose Right [facility]: CareDose [facility]: Dose Right [facility]: Teradose 4D [facility]: Entreda CONTRAST TYPE AND DOSE: Contrast/concentration: Isovue 350.00 mmol/ml; Total Contrast Delivered: 94. 0 ml; Total Saline Delivered: 45.0 ml RENAL FUNCTION: GFR > 60. RADIATION DOSE: CT Rad equipment meets quality standard of care and radiation dose reduction techniq ues were employed. CTDIvol: 9.5 - 13.4 mGy. DLP: 1293 mGy-cm. LIMITATIONS: None. FINDINGS: LOWER CHEST: No acute findings. LIVER: The morphology of the liver is noncirrhotic. The relative hypoattenuation of the hepatic pare nchyma compared to the splenic parenchyma on the portal venous phase is suggestive of underlying hepa tic steatosis. The portal veins are patent. There is no hepatic mass. SPLEEN: The spleen is borderline enlarged and it measures 12.7 cm in length. PANCREAS: No acute gross abnormality of the pancreas. GALLBLADDER: The gallbladder is surgically absent. There is gas near the ampulla of Vater. ADRENAL GLANDS: No mass or asymmetry. RIGHT KIDNEY AND URETER: No solid mass, hydronephrosis, nephrolithiasis, hydroureter or ureterolithia sis. LEFT KIDNEY AND URETER: 3 mm caliceal calculi in the lower pole of the kidney. There is no solid mas s, hydronephrosis, hydroureter or ureterolithiasis. AORTA AND VESSELS: No aneurysm or dissection of the abdominal aorta. RETROPERITONEUM: No retroperitoneal adenopathy, hemorrhage or mass. BOWEL AND PERITONEAL CAVITY: No bowel obstruction, bowel wall thickening or pericolonic/ perienteric inflammation. No mesenteric adenopathy, free intraperitoneal fluid or mesenteric/ omental inflammati on. APPENDIX: Normal. PELVIS: Probable corpus luteum cyst in the left adnexum that measures 2.3 x 1.8 cm. The uterus is he terogeneous. There is no abnormality of the urinary bladder. ABDOMINAL WALL: No mass or hernia BONES: No fracture or osseous lesion. OTHER: Tubal ligation clips. IMPRESSION: 1. No acute intra-abdominal abnormality. 2. Probable corpus luteum cyst in the left adnexum. 3. Uterine fibroids. 3. Caliceal calculi in the left kidney that measure up to 3 mm. There is no associated hydronephrosi s or hydroureter. TECHNICAL DOCUMENTATION: JOB ID: [id number] Quality ID # [id number]: Final reports with documentation of one or more dose reduction techniques (e.g., Au tomated exposure control, adjustment of the mA and/or kV according to patient size, use of iterative reconstruction technique) 2010 [employer]- All Rights Reserved Reading location - IP/workstation name: [email or web address]
[2019-12-05] MEDS ORDERED: CEFTRIAXONE 1 GM/D5W RTU 1 GM/50 ML RTUPB IV ONE (14:15)
--- NOTE | 2019-12-05 14:41 | ER Document Report ---
ED General - General Chief Complaint: Lower Abdominal Pain Stated Complaint: REVISIT/LOW RIGHT PELVIC PAIN Time Seen by Provider: 12/05/19 10:33 Mode of Arrival: Ambulatory Information source: Patient TRAVEL OUTSIDE OF THE [place] IN LAST 30 DAYS: No - HPI Notes: Patient presents with right lower quadrant and right flank pain that is been going on for several weeks. She states it is intermittent. It is worse with movement and better with rest. It is sharp. She states that she was told on a previous visit that she had a hernia but when she went to see the surgery clinic today they told her that she did not have a hernia. She is had some nausea but no significant vomiting. No problems with urination or bowel movements. She has had no fevers. The pain is been moderate in intensity and sharp. It is radiating from the flank into the right lower quadrant. - Related Data Allergies/Adverse Reactions: No Known Allergies Allergy (Verified 12/05/19 10:26) Past Medical History - General Information source: Patient - Social History Smoking Status: Current Every Day Smoker Chew tobacco use (# tins/day): No Frequency of alcohol use: None Drug Abuse: None Family History: Reviewed & Not Pertinent Patient has homicidal ideation: No Endocrine Medical History: Reports: Hx Diabetes Mellitus Type 1, Hx Diabetes Mellitus Type 2 Renal/ Medical History: Reports: Hx Kidney Stones, Hx Ovarian Cysts Musculoskeletal Medical History: Reports Hx Arthritis - ra Past Surgical History: Reports: Hx Section, Hx Cholecystectomy, Hx Kidney (Renal Surgery), Hx Orthopedic Surgery - right foot, Hx Tubal Ligation - Immunizations Hx Diphtheria, Pertussis, Tetanus Vaccination: Yes Review of Systems - Review of Systems Constitutional: denies: Chills, Fever Cardiovascular: denies: Chest pain, Palpitations Respiratory: denies: Cough, Short of breath -: Yes All other systems reviewed and negative Physical Exam - Vital signs Vitals: Temp Pulse Resp BP Pulse Ox 98.5 F 126 H 18 153/96 H 100 12/05/19 10:14 12/05/19 10:14 12/05/19 10:14 12/05/19 10:14 12/05/19 10:14 Interpretation: Tachycardic - General General appearance: Appears well, Alert - HEENT Head: Normocephalic, Atraumatic Eyes: Normal Pupils: PERRL - Respiratory Respiratory status: No respiratory distress Chest status: Nontender Breath sounds: Normal Chest palpation: Normal - Cardiovascular Rhythm: Tachycardia Heart sounds: Normal auscultation Murmur: No - Abdominal Inspection: Normal Distension: No distension Bowel sounds: Normal Tenderness: Tender - Patient has some tenderness in the right lower quadrant to palpation but no mass could be felt. Organomegaly: No organomegaly - Back Back: Normal, Tender - Right CVA tenderness - Extremities General upper extremity: Normal inspection, Nontender, Normal color, Normal ROM, Normal temperature General lower extremity: Normal inspection, Nontender, Normal color, Normal ROM, Normal temperature, Normal weight bearing. No: Jonathan's sign - Neurological Neuro grossly intact: Yes Cognition: Normal Orientation: AAOx4 [place] Coma Scale Eye Opening: Spontaneous Su Coma Scale Verbal: Oriented [place] Coma Scale Motor: Obeys Commands Su Coma Scale Total: 15 Speech: Normal Motor strength normal: LUE, RUE, LLE, RLE Sensory: Normal - Psychological Associated symptoms: Normal affect, Normal mood - Skin Skin Temperature: Warm Skin Moisture: Dry Skin Color: Normal Course - Re-evaluation Re-evalutation: 12/05/19 14:47 Patient presents with right lower quadrant pain with concern for hernia. No hernias appreciated on exam or on CT scan. She does however have some flank pain as well as a infected urine consistent with a pyelonephritis. I will send the patient home with pain medication, nausea medication, and antibiotics. We will have her follow-up with her primary care physician. - Vital Signs Vital signs: Temp Pulse Resp BP Pulse Ox 98.2 F 90 18 148/90 H 97 12/05/19 14:29 12/05/19 14:29 12/05/19 14:29 12/05/19 14:29 12/05/19 14:29 - Laboratory Result Diagrams: 12/05/19 11:20 12/05/19 11:20 Laboratory results interpreted by me: 12/05/19 12/05/19 12/05/19 10:35 11:20 11:20 MCV 79 L MCH 25.8 L RDW 16.2 H Sodium 132.9 L Carbon Dioxide 20 L Glucose 331 H Alkaline Phosphatase 134 H Urine Glucose (UA) >=500 H Urine Ketones TRACE H Leukocyte Esterase Rfl LARGE H - Diagnostic Test Radiology reviewed: Image reviewed, Reports reviewed Discharge - Discharge Clinical Impression: Pyelonephritis Condition: Stable Disposition: HOME, SELF-CARE Instructions: Pyelonephritis ([facility]) Additional Instructions: Please call your primary care doctor soon as possible to arrange follow-up Prescriptions: Cefdinir 300 mg PO BID 7 Days #14 capsule Hydrocodone/Acetaminophen [[place] 5-325 mg Tablet] 1 tab PO Q6 PRN 3 Days #12 tablet PRN Reason: For Pain Ondansetron [Zofran Odt 4 mg Tablet] 1 - 2 tab PO Q4H PRN #15 tab.rapdis PRN Reason: For Nausea/Vomiting Forms: Return to Work Referrals: [facility] [Provider Group] - Follow up as needed
[2019-12-05 15:07] VITALS: BP 153/99
== END 2019-12-05 15:21 | disposition home or self-care (01) ==
LOC: ER 10:09
DX: N12 Tubulo-interstitial nephritis, not specified as acute or chronic (principal); D25.9 Leiomyoma of uterus, unspecified; N20.0 Calculus of kidney; R11.0 Nausea; F17.200 Nicotine dependence, unspecified, uncomplicated; E11.9 Type 2 diabetes mellitus without complications; R00.0 Tachycardia, unspecified
CPT/HCPCS: 99285; 96375; 96365; 36415; 87086; 85025; 81025; 87088; 80053; 81001; 87186; 74177; J2270; J2405; J7030; J0696

== ENCOUNTER 2020-04-28 09:44 | Emergency (ER) | payer MEDICAID ==
[2020-04-28] MEDS ORDERED: NORMAL SALINE 1000 ML 1,000 ML IV ONE (11:08)
[2020-04-28 12:01] LABS: APPEARANCE,URINE SLIGHTLY-CLOUDY; BILIRUBIN,URINE NEGATIVE (NEGATIVE); COLOR,URINE YELLOW; GLUCOSE, URINE >=500 mg/dL (NEGATIVE); KETONES,URINE TRACE mg/dL (NEGATIVE); LEUKOCYTE ESTERASE,URINE NEGATIVE (NEGATIVE); NITRITE,URINE POSITIVE (NEGATIVE); PROTEIN,URINE NEGATIVE (NEGATIVE); URINE SPECIFIC GRAVITY 1.028; UROBILINOGEN,URINE NEGATIVE mg/dL (<2.0)
--- NOTE | 2020-04-28 12:15 | ER Document Report ---
Entered by RANDALL CHOW SCRIBE 04/28/20 1055 Acting as scribe for:KENY BUSCH MD ED General - General Chief Complaint: Nausea/Vomiting Stated Complaint: ABDOMINAL PAIN,VOMITING Mode of Arrival: Ambulatory Information source: Patient Notes: This 39 year old female patient presents to the ED today for evaluation after waking up with abdominal cramping followed by nausea and vomiting around 0400 this morning. Patient states that she then developed a frontal headache and nonproductive cough. She reports that she has been feeling a "little rundown" lately, but she felt fine before she went to bed last night. She also notes mild sore throat, left ear pain, post nasal drip, sinus congestion, and dizziness with left lateral gaze. Denies fever, chills, diarrhea, or loss of taste/smell. Denies any known COVID exposure or ever being tested. TRAVEL OUTSIDE OF THE [place] IN LAST 30 DAYS: No - Related Data Allergies/Adverse Reactions: No Known Allergies Allergy (Verified 12/05/19 10:26) Past Medical History - General Information source: Patient - Social History Smoking Status: Current Every Day Smoker Chew tobacco use (# tins/day): No Smoking Education Provided: No Frequency of alcohol use: Rare Drug Abuse: None Family History: Reviewed & Not Pertinent Endocrine Medical History: Reports: Hx Diabetes Mellitus Type 2 Renal/ Medical History: Reports: Hx Kidney Stones, Hx Ovarian Cysts Musculoskeletal Medical History: Reports Hx Arthritis - ra Past Surgical History: Reports: Hx Section, Hx Cholecystectomy, Hx Inguinal Hernia - Right, Hx Kidney (Renal Surgery) - Right nephrostomy tube placement and removal, x5 lithotripsies, Hx Orthopedic Surgery - right foot, Hx Tubal Ligation - Immunizations Hx Diphtheria, Pertussis, Tetanus Vaccination: Yes Review of Systems - Review of Systems Constitutional: See HPI. denies: Chills, Fever EENT: See HPI, Sinus pressure, Throat pain Cardiovascular: See HPI, Dizziness Respiratory: See HPI, Cough. denies: Sputum Gastrointestinal: See HPI, Abdominal pain, Nausea, Vomiting. denies: Diarrhea Genitourinary: No symptoms reported Female Genitourinary: No symptoms reported Musculoskeletal: No symptoms reported Skin: No symptoms reported Hematologic/Lymphatic: No symptoms reported Neurological/Psychological: See HPI, Headaches -: Yes All other systems reviewed and negative Physical Exam - Vital signs Vitals: Temp Pulse Resp BP Pulse Ox 98.1 F 108 H 20 140/101 H 100 04/28/20 09:49 04/28/20 09:49 04/28/20 09:49 04/28/20 09:49 04/28/20 09:49 - General General appearance: Alert In distress: None - HEENT Head: Normocephalic, Atraumatic Eyes: Normal Extraocular movements intact: Yes Pupils: PERRL Tympanic membrane: Other - Bilateral TMs are dull and congested Sinus: Maxillary - bilateral, left greater than right, Tenderness Pharynx: Erythema. No: Exudate, Tonsillar hypertrophy Neck: Normal, Supple - Respiratory Respiratory status: No respiratory distress Chest status: Nontender Breath sounds: Normal Chest palpation: Normal - Cardiovascular Rhythm: Regular Heart sounds: Normal auscultation Murmur: No - Abdominal Inspection: Normal Distension: No distension Bowel sounds: Normal Tenderness: Nontender - Abdomen soft Organomegaly: No organomegaly - Back Back: Normal, Nontender - Extremities General upper extremity: Normal inspection General lower extremity: Normal inspection. No: Edema - Neurological Neuro grossly intact: Yes Orientation: AAOx4 Su Coma Scale Eye Opening: Spontaneous Su Coma Scale Verbal: Oriented Su Coma Scale Motor: Obeys Commands [place] Coma Scale Total: 15 - Psychological Associated symptoms: Normal affect, Normal mood - Skin Skin Temperature: Warm Skin Moisture: Dry Skin Color: Normal Course - Re-evaluation Re-evalutation: 04/28/20 12:03 Patient respiratory panel reports negative for Covid or any other respiratory virus. Discussed with patient that we will cannot decelerate the orders treat her sinusitis and labyrinthitis which involves some nausea and vomiting. Also patient has a mild urinary tract infection which patient will be on antibiotics that should cover urinary tract infections as well. - Vital Signs Vital signs: Temp Pulse Resp BP Pulse Ox 98.1 F 108 H 20 140/101 H 100 04/28/20 09:49 04/28/20 09:49 04/28/20 09:49 04/28/20 09:49 04/28/20 09:49 04/28/20 12:05 Vital signs shows blood pressure 140/101. Afebrile with a pulse of 108. Patient's vital signs will be repeated be repeated before discharge. - Laboratory Results Laboratory Results Interpreted: Urine Color YELLOW 04/28/20 11:30 Urine Appearance SLIGHTLY-CLOUDY 04/28/20 11:30 Urine pH 6.0 (5.0-9.0) 04/28/20 11:30 Ur Specific [place] 1.028 04/28/20 11:30 Urine Protein NEGATIVE mg/dL (NEGATIVE) 04/28/20 11:30 Urine Glucose (UA) >=500 mg/dL (NEGATIVE) H 04/28/20 11:30 Urine Ketones TRACE mg/dL (NEGATIVE) H 04/28/20 11:30 Urine Blood NEGATIVE (NEGATIVE) 04/28/20 11:30 Urine Nitrite POSITIVE (NEGATIVE) H 04/28/20 11:30 Ur Leukocyte Esterase NEGATIVE (NEGATIVE) 04/28/20 11:30 Urine WBC (Auto) 6 /HPF 04/28/20 11:30 Urine RBC (Auto) 1 /HPF 04/28/20 11:30 Urinalysis shows nitrite positive urine with 6 white blood cells per high-power field and 1 red cells per high-power field. Urine is slightly cloudy. We will culture urine and patient will be placed on antibiotics for her sinusitis and if there is a discrepancy between antibiotics and urine culture patient will be called by our follow-up nurse who monitors and follow-up on infections that treated in the emergency department. Critical Laboratory Results Reviewed: No Critical Results - Radiology Results Critical Radiology Results Reviewed: No Critical Results Discharge - Discharge Clinical Impression: Acute sinusitis, Acute labyrinthitis Condition: Stable Disposition: HOME, SELF-CARE Instructions: Labyrinthitis ([facility]), Meclizine ([facility]) Additional Instructions: Sinusitis You have sinusitis, an infection of the sinus cavities of the face. The sinuses are air-filled chambers which open into the inside of the nose. Bacteria and pus fill a sinus, causing pain, drainage, and fever. Sinusitis is treated with antibiotics. Often, expectorants (to thin the sinus mucous) or decongestants (to reduce swelling) are prescribed as well. Healing requires seven to 10 days. Avoid chemical fumes, pollens, dusts, and smoke (especially cigarette smoke). Keep the air humidified in your bedroom and work area and take plenty of liquids by mouth. This condition can be serious if the infection spreads. If your symptoms worsen, or if you develop severe headache, high fever, stiff neck, or a rash, you must call the doctor or return for re-evaluation. Prescriptions: Amoxicillin 875 mg PO BID #20 tablet Meclizine HCl [Antivert 25 mg Tablet] 25 mg PO TID PRN #21 tablet PRN Reason: Forms: Return to Work I personally performed the services described in the documentation, reviewed and edited the documentation which was dictated to the scribe in my presence, and it accurately records my words and actions.
[2020-04-28 12:50] VITALS: BP 140/89
== END 2020-04-28 12:49 | disposition home or self-care (01) ==
LOC: ER 09:44
DX: J01.90 Acute sinusitis, unspecified (principal); H83.09 Labyrinthitis, unspecified ear; R11.2 Nausea with vomiting, unspecified; R10.9 Unspecified abdominal pain; R09.81 Nasal congestion; R09.82 Postnasal drip; R51.9 Headache, unspecified; R05 Cough; J02.9 Acute pharyngitis, unspecified; H92.02 Otalgia, left ear; R42 Dizziness and giddiness; F17.200 Nicotine dependence, unspecified, uncomplicated
CPT/HCPCS: 99283; 87070; 87880; 0202U ×23; 81001